=== PATIENT | female | born 1995 | race Caucasian/White ===

== ENCOUNTER 2018-03-09 09:55 | Inpatient (IN) | payer OTHER, SELFPAY ==
[2018-03-09 10:04] VITALS: BMI 29.9
[2018-03-09] MEDS: Lactated Ringers 1,000 ML 50 ML IV ×2 (10:15→13:55)
[2018-03-09 10:51] LABS: Hematocrit 36.3 % (37-47); Hemoglobin 11.6 g/dl (12.0-15.0); Mean Corpuscular Hgb 26.5 pg (27.0-32.0); Mean Corpuscular Volume 82.9 fL (81-99); Platelet Count 294 K/mm3 (150-450); RBC Distribution Width CV 13.1 % (11.6-14.6); RBC Distribution Width SD 38.8 fl (35.1-43.9); Red Blood Count 4.38 M/mm3 (4.2-5.4); White Blood Count 10.7 K/mm3 (4.4-11.0)
[2018-03-09 10:53] LABS: Scan Indicated on CBC? Y/N NO
--- NOTE | 2018-03-09 11:36 | PCM.HP.OB ---
History Date of Admission: 03/09/18 Final DAT: 03/07/18 Final DAT Source: LMP Gestational age: 40 Weeks and 2 Days History of this : This is a 22 year-old, @ 40.2 wks seen in office c/o contractions- found to be in early labor and was sent for for admission. pt denies VB, LOF. pt reports good FM. Allergies No Known Allergies Allergy (Verified 09/04/13 19:47) Home Medications: Home Medications Vits96/Iron Fum/Folic [ Tablet] 1 each PO DAILY 03/09/18 Smoking Status: Never smoker Alcohol: None Number of Fetus(es): 1 Heart Tracin mod oneal, + accels no decels. TOCO Analysis: q2-4min History Past Pregnancies: Past Pregnancies Delivery Date Name GA/Weeks Outcome Route Weight Gender Labor Length Anesthesia Delivery Location Provider FOB Labs: A+, GBS neg, HIV NR, HEP B neg, Rub imm, syphilis neg Expected Infant Delivery Method: Spontaneous Vaginal Review of Systems Constitutional: Denies: Anorexia HEENT: Reports: Difficulty Hearing Cardiovascular: Denies: Chest Pain Respiratory: Denies: Cough Gastrointestinal: Reports: - - contraction pain Genitourinary: Denies: Dysuria Physical Exam General: Alert, Oriented x3 Abdomen: Soft, Non Tender, Gravid Neurological: Cranial nerves II-XII grossly intact EXPLORATION MANAGER: Normal external genitalia Estimated gestational size: Appropriate for gestational size Presentation: Cephalic Cervix Dilation (cm): 4.5 Station: 0 Effacement (%): 95 Assessment/Plan This is a 22 year-old, @ 40.2 wks in early labor 1) admit to L&D 2) Monitor FHR/TOCO 3) anticipate 4) epidural if requested for pain 5) consider pitocin if indicated 6) AROM performed- scant clear fluid
--- NOTE | 2018-03-09 11:40 | HP.PCM_ITS ---
History Date of Admission: 03/09/18 Final DAT: 03/07/18 Final DAT Source: LMP Gestational age: 40 Weeks and 2 Days History of this : This is a 22 year-old, @ 40.2 wks seen in office c/o contractions- found to be in early labor and was sent for for admission. pt denies VB, LOF. pt reports good FM. Allergies No Known Allergies Allergy (Verified 09/04/13 19:47) Home Medications: Home Medications Vits96/Iron Fum/Folic [ Tablet] 1 each PO DAILY 03/09/18 Smoking Status: Never smoker Alcohol: None Number of Fetus(es): 1 Heart Tracin mod oneal, + accels no decels. TOCO Analysis: q2-4min History Past Pregnancies: Past Pregnancies Delivery Date Name GA/Weeks Outcome Route Weight Gender Labor Length Anesthesia Delivery Location Provider FOB Labs: A+, GBS neg, HIV NR, HEP B neg, Rub imm, syphilis neg Expected Infant Delivery Method: Spontaneous Vaginal Review of Systems Constitutional: Denies: Anorexia HEENT: Reports: Difficulty Hearing Cardiovascular: Denies: Chest Pain Respiratory: Denies: Cough Gastrointestinal: Reports: - - contraction pain Genitourinary: Denies: Dysuria Physical Exam General: Alert, Oriented x3 Abdomen: Soft, Non Tender, Gravid Neurological: Cranial nerves II-XII grossly intact PAINTER TOUCH UP: Normal external genitalia Estimated gestational size: Appropriate for gestational size Presentation: Cephalic Cervix Dilation (cm): 4.5 Station: 0 Effacement (%): 95 Assessment/Plan This is a 22 year-old, @ 40.2 wks in early labor 1) admit to L&D 2) Monitor FHR/TOCO 3) anticipate 4) epidural if requested for pain 5) consider pitocin if indicated 6) AROM performed- scant clear fluid
[2018-03-09] MEDS: fentaNYL-bupivacaine (epidural) 100 ML BAG EPIDURAL (13:30)
[2018-03-09] MEDS: Oxytocin 30 units/NS 500 ml 30 UNITS/500 ML IV.SOLN 334 UNITS IV (17:02)
--- NOTE | 2018-03-09 17:10 | PCM.OB.VAG ---
Vaginal Delivery Maternal Presentation: Active Labor Amniotic Membrane Rupture Type: Artificial Amniotic Fluid Description: Clear Final DAT: 03/07/18 Gestational age: 40 Weeks and 2 Days Date of Procedure: 03/09/18 Pre-Operative Diagnosis: term gestation,spontaneous labor Post-Operative Diagnosis: live female Surgery/ Procedure Performed: Spontaneous Vaginal Delivery Type of Anesthesia: Epidural Description of Procedure: of live female infant born without complications. Delayed cord clamping performed. Presentation: Vertex Placental Delivery Description: Spontaneous Placenta Disposition: [facility] Cord Vessel Description: 3 Vessels Cord Entanglement: None Drain: Simeon to straight drain Estimated Blood Loss: 200 Infant A gender: Female (1 minute): 9 (5 minute): 9 Episiotomy Description: None Laceration: None Medications given after delivery: IV Pitocin Complications: None
[2018-03-09] MEDS: Oxytocin 30 units/NS 500 ml 30 UNITS/500 ML IV.SOLN 167 UNITS IV (17:32)
[2018-03-09 20:30] VITALS: BP 121/71; PULSE 94; RESP 16; TEMP 36.5; O2SAT 97
[2018-03-10 01:00] VITALS: BP 119/61; PULSE 71; RESP 18; TEMP 36.1
[2018-03-10 05:00] VITALS: BP 114/65; PULSE 63; RESP 14; TEMP 37.1; O2SAT 97
--- NOTE | 2018-03-10 08:35 | PCM.PN.OB ---
Subjective: No complaints - Physical Exam General: Alert, Oriented x3 Abdomen: Soft, Non Tender, Non-Distended - ff mid & below umb Extremities: No Calf Tenderness Vital Signs Temp Pulse Resp BP Pulse Ox 98.8 F 63 14 114/65 97 03/10/18 05:00 03/10/18 05:00 03/10/18 05:00 03/10/18 05:00 03/10/18 05:00 Oxygen Delivery Method Room Air Weight: 191 lb 9.307 oz Body Mass Index (BMI) 29.9 Intake and Output for Last 24 Hours 03/08/18 03/09/18 03/10/18 23:59 23:59 23:59 Output Total 1100 / 1100 Balance -1100 / -1100 Laboratory Tests Past 24 Hrs 03/09/18 03/09/18 10:15 10:15 WBC 10.7 RBC 4.38 Hgb 11.6 L Hct 36.3 L MCV 82.9 MCH 26.5 L MCHC 32.0 RDW 13.1 RDW Differential 38.8 Plt Count 294 MPV 11.0 Blood Type A POSITIVE Antibody Screen NEGATIVE Medical Necessity - Tobacco Use Smoking Status: Never smoker Assessment/Plan PPD#1 Routine care
[2018-03-10 09:00] VITALS: BP 110/64; PULSE 78; RESP 20; TEMP 37.1; O2SAT 96
[2018-03-10 12:30] VITALS: BP 114/75; PULSE 67; TEMP 36.6; O2SAT 97
[2018-03-10 16:10] VITALS: BP 122/73; PULSE 73; RESP 18; TEMP 36.4
[2018-03-10] MEDS: Senna/Docusate Sodium 1 Tablet PO (19:55)
[2018-03-10 20:00] VITALS: BP 116/73; PULSE 72; RESP 14; TEMP 36.6
[2018-03-11 02:00] VITALS: BP 115/74; PULSE 86; RESP 16; TEMP 36.5
[2018-03-11 07:51] VITALS: BP 123/83; PULSE 77; RESP 16; TEMP 36.6; O2SAT 97
--- NOTE | 2018-03-11 08:27 | PCM.PN.OB ---
Subjective: No complaints - Physical Exam General: Alert, Oriented x3 Abdomen: Soft, Non Tender, Non-Distended - ff mid & below umb Extremities: No Calf Tenderness Vital Signs Temp Pulse Resp BP Pulse Ox 97.9 F 77 16 123/83 H 97 03/11/18 07:51 03/11/18 07:51 03/11/18 07:51 03/11/18 07:51 03/11/18 07:51 Oxygen Delivery Method Room Air Weight: 191 lb 9.307 oz Body Mass Index (BMI) 29.9 Intake and Output for Last 24 Hours 03/09/18 03/10/18 03/11/18 23:59 23:59 23:59 Output Total 1100 / 1100 Balance -1100 / -1100 Medical Necessity - Tobacco Use Smoking Status: Never smoker Assessment/Plan PPD#2 D/c home
--- NOTE | 2018-03-11 08:28 | PCM.DCVAG ---
Discharge Diet: No Restrictions Discharge Activity: May Drive, May Shower May resume sexual activity in: 4-6 weeks Weight Bearing Status: Weight bearing as tolerated Additional Instructions: If you experience any of the following, contact your healthcare provider. Bleeding that soaks a pad every hour for 2 hours Fever 100.4 or higher Unrelieved incision or abdominal pain Swelling, redness, discharge or bleeding from your incision or episiotomy site Your incision begins to separate Problems urinating (including inability to urinate or burning while urinating). Visual changes Severe headache Flu-like symptoms Pain or redness in one of both of your breasts Pain, warmth, tenderness or swelling in your legs, especially the calf area Frequent nausea and vomiting Symptoms of depression or anxiety If you experience any of the following, call 911 or go to the nearest Emergency Room. Chest pain Problems breathing Seizure activity Partial or complete paralysis of a body part, slurred speech, weakness or drooping of the face, or a sudden inability to walk or hold your balance Allergies/Adverse Reactions: Allergies No Known Allergies Allergy (Verified 09/04/13 19:47) Medications to take at Discharge Vits96/Iron Fum/Folic [ Tablet] 1 each PO DAILY 03/09/18 Primary Care Physician: Care Physician,No Primary [Primary Care Provider] - Test Results: Test results from this visit will be discussed in further detail at your follow-up appointment, if applicable.
--- NOTE | 2018-03-11 08:29 | DCINST_ITS ---
Discharge Diet: No Restrictions Discharge Activity: May Drive, May Shower May resume sexual activity in: 4-6 weeks Weight Bearing Status: Weight bearing as tolerated Additional Instructions: If you experience any of the following, contact your healthcare provider. * Bleeding that soaks a pad every hour for 2 hours * Fever 100.4 or higher * Unrelieved incision or abdominal pain * Swelling, redness, discharge or bleeding from your incision or episiotomy site * Your incision begins to separate * Problems urinating (including inability to urinate or burning while urinating). * Visual changes * Severe headache * Flu-like symptoms * Pain or redness in one of both of your breasts * Pain, warmth, tenderness or swelling in your legs, especially the calf area * Frequent nausea and vomiting * Symptoms of depression or anxiety If you experience any of the following, call 911 or go to the nearest Emergency Room. * Chest pain * Problems breathing * Seizure activity * Partial or complete paralysis of a body part, slurred speech, weakness or drooping of the face, or a sudden inability to walk or hold your balance Allergies/Adverse Reactions: Allergies No Known Allergies Allergy (Verified 09/04/13 19:47) Medications to take at Discharge Vits96/Iron Fum/Folic [ Tablet] 1 each PO DAILY 03/09/18 Primary Care Physician: Care Physician,No Primary [Primary Care Provider] - Test Results: Test results from this visit will be discussed in further detail at your follow- up appointment, if applicable.
== END 2018-03-11 11:00 | disposition home or self-care (01) | DRG 807 ==
PROVIDERS: Admitting Provider Obstetrics & Gynecology; Referring Provider Obstetrics & Gynecology; Visit Provider Obstetrics & Gynecology
DX: O48.0 Post-term pregnancy (principal); Z37.0 Single live birth; Z3A.40 40 weeks gestation of pregnancy
CPT/HCPCS: 59025; 59050; 85027; 86850; 86900; 99218; J7120; G0378